=== PATIENT | female | born 1975 | race Caucasian/White ===

== ENCOUNTER 2017-07-03 19:15 | Inpatient (IN) ==
[2017-07-03 19:22] VITALS: BMI 25.2
[2017-07-03] MEDS ORDERED: SODIUM CHLORIDE 1,000 ML IV STA (19:44)
[2017-07-03] MEDS ORDERED: MORPHINE 2 MG/ML SYRINGE IVP STA (19:48)
[2017-07-03] MEDS ORDERED: NITROSTAT SL STA (19:48)
[2017-07-03] MEDS ORDERED: ZOFRAN 4 MG/2 ML IVP STA (19:49)
[2017-07-03] MEDS ORDERED: ASPIRIN CHEWABLE PO STA (19:50)
[2017-07-03 19:55] LABS: BASOPHILS % (AUTO) 0.5 % (0.0-3.0); EOSINOPHILS # (AUTO) 0.4 K/ul (0.0-0.7); HEMATOCRIT 38.2 % (37.0-47.0); HEMOGLOBIN 13.1 g/dl (12.0-16.0); IMMATURE GRANULOCYTE % (AUTO) 0.3 % (0.0-5.0); LYMPHOCYTES # (AUTO) 2.8 K/uL (0.60-3.4); LYMPHOCYTES % (AUTO) 36.6 (10.0-50.0); MEAN CORPUSCULAR HEMOGLOBIN 32.3 pg (27.0-31.0); MEAN CORPUSCULAR HGB CONC 34.3 (31.8-35.4); MEAN CORPUSCULAR VOLUME 94.1 fl (81.0-99.0); MONOCYTES # (AUTO) 0.5 K/uL (0.4-2.0); NEUTROPHILS # (AUTO) 3.8 K/ul (2.0-6.9); NEUTROPHILS % (AUTO) 50.6; PLATELET COUNT 291 10^3/uL (140-440); RED BLOOD COUNT 4.06 10^6/ul (4.20-5.40); WHITE BLOOD COUNT 7.55 K/ul (4.6-10.2)
[2017-07-03 20:23] LABS: SERUM PREGNANCY INTERNAL QC INTERNAL QC VALID
[2017-07-03 20:32] LABS: ALBUMIN 3.6 g/dL (3.4-5.0); ALBUMIN/GLOBULIN RATIO 1.09; ANION GAP 11.7; BILIRUBIN,TOTAL 0.55 mg/dL (0.00-1.20); BUN/CREATININE RATIO 19.51; CALCIUM 8.9 mg/dL (8.2-10.2); CREATININE 0.82 mg/dL (0.60-1.30); POTASSIUM 3.7 mmol/L (3.5-5.10); TOTAL PROTEIN 6.9 g/dL (6.4-8.2); TROPONIN I 0.014 ng/ml (0.0000-0.4000)
[2017-07-03 20:33] LABS: CREATINE KINASE MB 1.4 ng/ml (0.0-3.6)
--- NOTE | 2017-07-03 21:33 | CT ---
Exam: CT angiography of the chest History: Chest pain Technique: [address] of the chest utilizing CT angiography protocol per multiplanar and three-dimensio nal reformations were performed. FINDINGS: Technically adequate for evaluation of pulmonary arteries and aorta. There are no pulmonar y artery filling defects. The aorta is normal. Lung windows show no pulmonary parenchymal abnormali ties. Heart, great vessels and pericardium appear normal. No abnormalities of the chest wall soft t issues or bony thorax. Impression: 1. No evidence of pulmonary artery thrombus. No acute findings of the chest.
--- NOTE | 2017-07-03 21:41 | CT ---
EXAM: CT abdomen pelvis with contrast. HISTORY: Epigastric pain COMPARISON: None. TECHNIQUE: Serial axial images of the abdomen pelvis were performed after contrast was administered . These were obtained from the lung bases through the inferior pelvis. FINDINGS: Images of the lower thorax show no pulmonary infiltrate. No pleural fluid is seen. Abdomen. There is no intraperitoneal free air. The liver, spleen, pancreas, adrenal glands are unremarkable. There is no renal calculus. No obstruction of either kidney or ureter is seen. There are changes of previous cholecystectomy. No biliary ductal dilatation seen. There is no ascites. There is no smal l bowel obstruction or bowel wall thickening. There is no pericecal inflammation. Only a portion andrew endix is clearly defined and appears nondilated. There is dense stool seen in the colon most promine nt cecum and ascending colon. Aorta is normal caliber. No abdominal adenopathy. Pelvis. Uterus midline. No free fluid is seen in the pelvis. No adenopathy. No hernia is identifi ed.. Impression 1. No bowel obstruction. Large volume dense stool seen in the cecum and the ascending colon, possib le constipation. No obvious pericecal inflammation. Only a portion of the appendix is visualized on the study without contrast. If there is progressing pain followup study with oral contrast could be performed to further assess. 2. No renal calculus. No obstruction either kidney ureter. 3. Previous cholecystectomy. No biliary duct dilatation.
--- NOTE | 2017-07-03 21:47 | ED.PDOC ---
General ED Provider: Dr. BORA FRANCIS-ER Chief Complaint: Chest Pain Stated Complaint: my chest has been jhurting Time Seen by Physician: 19:20 Mode of Arrival: Walk-In Information Source: Patient Exam Limitations: No limitations Primary Care Provider: BABITA MINER Nursing and Triage Documentation Reviewed and Agree: Yes Cardiovascular Complaint Exam - Chest Pain Complaint/Exam Onset: Gradual Duration: several min Symptoms Are: Still present Initial Severity: Mild Current Severity: Mild Location: Reports: Diffuse Character: Reports: Dull, Aching, Pressure Aggravating: Reports: None Alleviating: Reports: Nitro Associated Signs and Symptoms: Denies: Diaphoresis, Nausea, Vomiting, Fever, Palpitations, Cough, Hemoptysis, Back pain, Abdominal pain, Dizziness, Short of air, Calf pain, Calf swelling Related Surgical History: Reports: None History of Healthcare-Acquired Pneumonia: Reports: No AMI/ACS Risk Factors: Reports: Hypertension, Smoking TAD Risk Factors: Reports: None Pulmonary Embolism Risk Factors: Reports: None Prior Care for this Complaint: No Recent Stress Test: No JVD Present: No Subcutaneous Emphysema Present: No Diminshed Breath Sounds: No Reproducible Chest Wall Pain: No Bilateral Pulses Present: Yes Unequal Pulses Noted: No If Risk Factors for AMI/ACS Consider: EKG, Cardiac Enzymes Differential Diagnoses: Acute ND, ACS, Pulmonary Embolism Quality Indicators For Acute ND or Cardiac Chest Pain: EKG in 10min. Quality Indicator For Non-Traumatic Chest Pain/Syncope: EKG Performed Review of Systems - Review Of Systems Constitutional: Reports: No symptoms Eyes: Reports: No symptoms Ears, Nose, Mouth, Throat: Reports: No symptoms Respiratory: Reports: No symptoms Cardiac: Reports: Chest pain GI: Reports: No symptoms : Reports: No symptoms Musculoskeletal: Reports: No symptoms Skin: Reports: No symptoms Neurological: Reports: No symptoms Endocrine: Reports: No symptoms Hematologic/Lymphatic: Reports: No symptoms All Other Systems: Reviewed and Negative Past Medical History - Past Medical History Previously Healthy: No Endocrine: Reports: Unknown Cardiovascular: Reports: Hypertension Respiratory: Reports: Unknown Hematological: Reports: Unknown Gastrointestinal: Reports: Unknown Genitourinary: Reports: Unknown Neuro/Psych: Reports: Unknown Musculoskeletal: Reports: Unknown Cancer: Reports: Unknown Last Menstrual Period: PRESENTLY - Surgical History General Surgical History: Reports: Unknown - Family History Family History: Reports: Unknown - Social History Smoking Status: Current every day smoker, Light tobacco smoker Hx Substance Use: No Alcohol Screening: Occasionally - Immunizations Tetanus Shot up to Date: Yes Physical Exam - Physical Exam Appearance: Well-appearing, No pain distress, Well-nourished Pain Distress: Mild Eyes: JUAN FRANCISCO, EOMI, Conjunctiva clear ENT: Ears normal, Nose normal, Oropharynx normal Neck: Supple Respiratory: Airway patent, Breath sounds clear, Breath sounds equal, Respirations nonlabored Cardiovascular: RRR, Pulses normal, No rub, No murmur GI/: Soft, Nontender, No masses, Bowel sounds normal, No Organomegaly Musculoskeletal: Normal strength, ROM intact, No edema, No calf tenderness Skin: Warm, Dry, Normal color Neurological: Sensation intact Psychiatric: Affect appropriate, Mood appropriate Interpretation - Radiology Interpretation Radiology Interpretation By: Radiologist Radiology Results: Negative Exam Interpreted: CT Scan Re-Evaluation - Re-Evaluation Time of Re-Evaluation: 21:47 Status: Improved (pain free) Vital Signs Stable: Yes Pain Level: 0 Appearance: NAD Lungs: Clear Skin: Warm and Dry Neuro: Alert and Oriented X3 CV: RRR Critical Care Note - Critical Care Note Total Time (mins): 0 Course - Course Hematology/Chemistry: 07/03/17 19:50 07/03/17 19:50 Orders, Labs, Meds: Lab Review 07/03/17 07/03/17 07/03/17 19:50 19:50 19:50 WBC 7.55 RBC 4.06 L Hgb 13.1 Hct 38.2 MCV 94.1 MCH 32.3 H MCHC 34.3 RDW Coeff of Nida 12.8 Plt Count 291 Immature Gran % (Auto) 0.3 Neut % (Auto) 50.6 Lymph % (Auto) 36.6 [place] % (Auto) 7.0 Eos % (Auto) 5.0 Baso % (Auto) 0.5 Immature Gran # (Auto) 0.0 Neut # 3.8 Lymph # 2.8 [place] # 0.5 Eos # 0.4 Baso # 0.0 Sodium 137 Potassium 3.7 Chloride 103 Carbon Dioxide 26 Anion Gap 11.7 BUN 16 Creatinine 0.82 Estimated GFR (MDRD) 77.00 BUN/Creatinine Ratio 19.51 Glucose 87 Calcium 8.9 Total Bilirubin 0.55 AST 20 ALT 15 Alkaline Phosphatase 56 Total Creatine Kinase 163 CK-MB (CK-2) 1.4 CK-MB (CK-2) % 0.48701 Troponin I 0.0140 Total Protein 6.9 Albumin 3.6 Globulin 3.3 Albumin/Globulin Ratio 1.09 Amylase 92 Lipase 67 Serum , Qual Negative Orders Category Date Time Status EKG-(ED ONLY) Stat CARDIO 07/03/17 19:43 Completed NPO REMINDER: IMAGING ONCE CARE 07/03/17 19:45 Completed NPO REMINDER: IMAGING ONCE CARE 07/03/17 19:46 Completed IV [ED IV/MEDIPORT/POWERPORT] .ONCE EMERGENCY 07/03/17 19:44 Active AMYLASE Stat LAB 07/03/17 19:50 Completed CBC W/ AUTO DIFF Stat LAB 07/03/17 19:50 Completed COMPREHENSIVE METABOLIC PANEL Stat LAB 07/03/17 19:50 Completed CREATINE KINASE Stat LAB 07/03/17 19:50 Completed LIPASE Stat LAB 07/03/17 19:50 Completed SERUM Stat LAB 07/03/17 19:50 Completed TROPONIN I Stat LAB 07/03/17 19:50 Completed 0.9 % Sodium Chloride [Saline Flush] MEDS 07/03/17 19:44 Ordered 1 syr IVF PRN PRN Aspirin [Aspirin Chewable] MEDS 07/03/17 19:50 Discontinued 324 mg PO ONCE STA Morphine Sulfate [Morphine 2 mg/ml Syringe] MEDS 07/03/17 19:48 Discontinued 2 mg IVP ONCE STA Nitroglycerin [Nitrostat] MEDS 07/03/17 19:48 Discontinued 0.4 mg SL ONCE STA Ondansetron HCl/Pf [Zofran 4 mg/2 ml] MEDS 07/03/17 19:49 Discontinued 4 mg IVP ONCE STA Sodium Chloride 0.9% [Sodium Chloride] 1,000 ml MEDS 07/03/17 19:44 Active IV 100 mls/hr CT ABDOMEN/PELVIS W CONTRAST Stat RADS 07/03/17 19:[address] CHEST PE PROTOCOL Stat RADS 07/03/17 19:44 Completed Medications Generic Name Dose Route Start Last Admin Trade Name Freq PRN Reason Stop Dose Admin Sodium Chloride 1,000 mls @ 100 mls/hr 07/03/17 19:44 07/03/17 19:57 Sodium Chloride IV 07/04/17 05:43 100 mls/hr .Q10H STA Administration Sodium Chloride 1 syr 07/03/17 19:44 07/03/17 20:05 Saline Flush IVF 1 syr PRN PRN Administration To flush IV Discontinued Medications Generic Name Dose Route Start Last Admin Trade Name Skinny PRN Reason Stop Dose Admin Aspirin 324 mg 07/03/17 19:50 07/03/17 19:55 Aspirin Chewable PO 07/03/17 19:51 324 mg ONCE STA Administration Morphine Sulfate 2 mg 07/03/17 19:48 07/03/17 20:00 Morphine 2 Mg/Ml Syringe IVP 07/03/17 19:49 2 mg ONCE STA Administration Nitroglycerin 0.4 mg 07/03/17 19:48 07/03/17 19:57 Nitrostat SL 07/03/17 19:49 0.4 mg ONCE STA Administration Ondansetron HCl 4 mg 07/03/17 19:49 07/03/17 20:00 Zofran 4 Mg/2 Ml IVP 07/03/17 19:50 4 mg ONCE STA Administration Vital Signs: Temp Pulse Resp BP Pulse Ox 07/03/17 19:16 97.8 F 84 18 175/110 H 100 ALEXANDER Risk Score ALEXANDER Risk Score: Risk Score Odds of by 30D 0 0.1 (0.1-0.2) 1 0.3 (0.2-0.3) 2 0.4 (0.3-0.5) 3 0.7 (0.6-0.9) 4 1.2 (1.0-1.5) 5 2.2 (1.9-2.6) 6 3.0 (2.5-3.6) 7 4.8 (3.8-6.1) Departure - Departure Time of Disposition: 21:47 Disposition: HOME SELF-CARE Discharge Problem: Chest pain Instructions: Chest Pain (ED) Condition: Good Pt referred to PMD for follow-up: Yes Allergies/Adverse Reactions: Allergies No Known Allergies Allergy (Verified 07/03/17 19:22) Home Medications: Ambulatory Orders Amlodipine Besylate [Norvasc] 10 mg PO DAILY 11/02/14 Multivitamin [Multi-Vitamin Daily] 1 tab PO DAILY 11/02/14 Labetalol HCl 200 mg PO DAILY 07/03/17 Vortioxetine Hydrobromide [Brintellix] 10 mg PO DAILY 07/03/17 Transfer Form Completed: No Disposition Discussed With: Patient, Family
[2017-07-03] MEDS ORDERED: NITROSTAT SL PRN (21:50)
[2017-07-03] MEDS ORDERED: MORPHINE 2 MG/ML SYRINGE IVP PRN (21:51)
[2017-07-03] MEDS ORDERED: ZOFRAN 4 MG/2 ML IVP PRN (21:51)
[2017-07-03] MEDS ORDERED: TRANDATE PO STA (22:41)
[2017-07-03] MEDS ORDERED: NORVASC PO STA (22:41)
[2017-07-03] MEDS ORDERED: LOPRESSOR PO ONE (22:55)
[2017-07-04 06:06] LABS: CREATINE KINASE 121 U/L
[2017-07-04 06:07] LABS: CREATINE KINASE MB 1.2 ng/ml (0.0-3.6)
[2017-07-04] MEDS ORDERED: NON-FORMULARY MEDICATION (Amlodipine Besylate [Norvasc] 10 MG) PO SCH ×44 (09:00→21:00)
[2017-07-04] MEDS ORDERED: LABETALOL HCL 200 MG PO SCH ×2 (09:00→21:00)
[2017-07-04] MEDS ORDERED: CITRATE OF MAGNESIA PO STA (12:43)
[2017-07-04 13:34] LABS: CHOL/HDL RATIO 2.7 (4.5-5.5)
--- NOTE | 2017-07-04 13:55 | STRESSECHO ---
Date of Test: 07/04/17 Reason for Exam: CHEST PAIN Ordering Physician: JESSICA FALK MD PCP: BABITA MINER MD Current Medications: LABETALOL, NORVASC, BRINTELLIX, MULTI VITAMIN Resting EKG: SINUS RHYTHM, NO ACUTE CHANGES Target Heart Rate: 152 STAGE MPH/GRADE HEART RATE BPM BLOOD PRESSURE mmhg RHYTHM S-T SEGMENT +/- UP DOWN SYMPTOMS,COMMENTS At Rest 66 150/92 SR X NONE 1 1.7/10% 120 172/95 SR X NONE 2 2.5/12% 146 180/100 SR X NONE 3 3.4/14% 4 4.2/16% 5 5.0/18% Immediately after 150 SR X FATIGUE Durations of Exercise: 6:13 Maximum Heart Rate Reached: 150 Reason for Termination: FATIGUE 3 Minutes Post Exercise: HeartRate: 92, Blood Pressure: 165/92 MMHG, SR, +/- INTERPRETATION: OXYGEN SATURATION 99% WITH EXERCISE ON ROOM AIR 1. TEST NEGATIVE FOR ISCHEMIC ST-T WAVE CHANGES 2. NO CHEST PAIN OR CHEST DISCOMFORT 3. NO ARRHYTHMIAS 4. BLOOD PRESSURE RESPONSE: HYPERTENSION AT REST AND WITH EXERCISE NORMAL LEFT VENTRICULAR CONTRACTILITY RESTING AND POST EXERCISE COPY TO BABITA MINER MD MTDD
--- NOTE | 2017-07-04 14:02 | ECHOSTRESS ---
Date of Exam: 07/04/17 Ordering Physician: JESSICA FALK MD PCP: BABITA MINER MD Reason for Echo: CHEST PAIN, STRESS TEST-NO ISCHEMIA M-Mode Normal Adult Results LV Dimensions Normal Adult Results AoV Opening excursions >1.6 LVEDD-base- 3.5-5.8 Ao root dimensions 2.0-3.7 LVESD-base- 3.1-4.6 L. Atrium dimensions 1.9-3.8 Post. Wall thickness 0.8-1.1 IV septum (thickness) 0.7-1.2 Post. Wall excursion 0.72-1.3 Septal motion Systolic motion R. Ventricular cavity 1.5-2.0 LVEF 60% Paradoxical septal wall motion 2-D: NORMAL LEFT VENTRICULAR CONTRACTILITY RESTING AND POST EXERCISE M-MODE: MV: AV: TV: PV: CHAMBER SIZE: WALL MOTION: NORMAL LEFT VENTRICULAR CONTRACTILITY RESTING AND POST EXERCISE PERICARDIUM: INTERPRETATION: 1. NORMAL LEFT VENTRICULAR CONTRACTILITY RESTING AND POST EXERCISE COPY TO [facility] MIN[facility]
[2017-07-04] MEDS ORDERED: MULTIVITAMIN PO ONE (19:39)
[2017-07-04] MEDS ORDERED: NON-FORMULARY MEDICATION (Vortioxetine Hydrobromide [Trintellix] 10 MG) PO SCH (21:00)
[2017-07-04] MEDS ORDERED: TRANDATE PO SCH (21:00)
[2017-07-04] MEDS ORDERED: NORVASC PO SCH (21:00)
[2017-07-04] MEDS ORDERED: MULTIVITAMIN TABLET PO SCH (21:00)
[2017-07-05 06:25] VITALS: BP 119/72; TEMP 98.3
--- NOTE | 2017-07-11 14:35 | SSS ---
DATE OF SERVICE: 07/04/17 REASON FOR ADMISSION: Epigastric pain, chest pain HISTORY OF PRESENT ILLNESS: 41 year old female came to the emergency room with the epigastric pain just started a couple of hours after having spicy food. The pain was continued for 3- 4 days so came to the emergency room. Radiating the left side of the neck and left side of the jaw and backside. No nausea, vomiting or diarrhea. She was seen and evaluated by Dr. White. CT scan of the chest was negative. Initial blood pressure was 175/110, Trandate was given in the ER which did control her blood pressure. She was admitted to observation to rule out acute coronary syndrome. REVIEW OF SYSTEMS: CONSTITUTIONAL: No night sweats. No fatigue, malaise, lethargy. No fever or chills. HEENT: Eyes: No visual changes. No eye pain. No eye discharge. ENT: No runny nose. No epistaxis. No sinus pain. No sore throat. No odynophagia. No ear pain. No congestion. Epigastric pain radiating to the left side. RESPIRATORY: No cough, no congestion. No hemoptysis. No shortness of breath. CARDIOVASCULAR: No angina symptoms. No CHF symptoms. No atypical chest pain for CAD. No palpitations. No orthopnea. GASTROINTESTINAL: No abdominal pain. No nausea or vomiting. Constipation. No hematemesis. No hematochezia. GENITOURINARY: No dysuria. No hematuria. No obstructive symptoms. No discharge. No pain. No significant abnormal bleeding. MUSCULOSKELETAL: No musculoskeletal pain. No joint swelling. NEUROLOGICAL: Awake, alert, oriented to time, place and person. No headache. No neck pain. No syncope. No seizures. No dizziness. PSYCHIATRIC: Not anxious. No depression. No suicidal thoughts. No homicidal thoughts. SKIN: No rash. No lesions. No wounds. ENDOCRINE: No unexplained weight loss. No weight gain. HEMATOLOGIC/LYMPHATIC: No anemia. No purpura. No petechiae. No prolonged or excessive bleeding. No palpable lymph nodes. PAST HISTORY: Hypertension GERD Depression Anxiety Substance use Nicotine use Cholecystectomy Inguinal hernia repair PERSONAL/FAMILY HISTORY/SOCIAL HISTORY: The patient does smoke, alcohol sometimes and substance use marijuana sometimes. Family history is significant for the heart problems, skin cancer. PHYSICAL EXAMINATION: VITAL SIGNS: Blood pressure 133/83, respiratory rate 16, heart rate 72, temperature 98.6 with saturation 98 on 2 liters. HEENT: Head normocephalic, atraumatic. Eyes: Extraocular muscles are intact. Pupils are equal, round and reactive to light and accommodation. Ears: No lesions. Nose appeared normal. Throat: No exudate or erythema. NECK: Supple. No JVD, no carotid bruit. No lymphadenopathy or thyromegaly. LUNGS: Clear to auscultation. Percussion note normal. Chest symmetrical. HEART: S1, S2, no S3. No murmurs. No cyanosis or clubbing. No ascites. Pulses: Dorsalis pedis and posterior tibial pulses +1 to +2 both sides. ABDOMEN: Soft. Nontender. Bowel sounds active. No CVA tenderness. No mass felt. EXTREMITIES: No edema. Full range of motion of all extremities, equal. NEUROLOGIC: No focal deficit. Cranial nerves II through XII are grossly intact. No headache, no double vision or headache. SKIN: Not dry. Intact. Turgor - normal. LYMPHATIC: No palpable lymph nodes/no lymphedema. MUSCULOSKELETAL: Normal joints with no swelling. Muscle tone is normal. ALLERGIES: No known drug allergies. MEDICATIONS: Multivitamin Norvasc Brintellix Labetalol 100mg at bedtime LABS/EKG'S/X-RAY/ECHO/ABG: Sodium 137, potassium 3.7, chloride 103, bicarb 26, BUN 16, creatinine 0.82, glucose 87. TSH 1.089, Amylase and Lipase is normal. Hgb 13.1, hct 38.2, plt count 291. PROGRESS NOTES: See EMR. BRIEF HOSPITAL COURSE: The patient was admitted to the hospital stress test and echocardiogram was done which were negative. Magnesium Citrate was given for the constipation. As the patient was feeling better the patient was being discharged. DIAGNOSES: 1. Chest pain, noncardiac 2. Constipation 3. Depression 4. Anxiety 5. History of 6. Cholecystectomy 7. Inguinal Hernia repair RECOMMENDATIONS/PLAN: 1. Discharge the patient home 2. Lifestyle modification 3. Increase fiber diet 4. Followup with the PMD within 5-7 days. TIME SPENT: More than 65 minutes. [facility]
--- NOTE | 2017-07-11 14:44 | PN ---
DATE OF SERVICE: 07/04/17 SUBJECTIVE: The patient was admitted with elevated blood pressure and chest pain for which the patient is admitted and we are doing the stress test and echocardiogram. Blood pressure became normal today morning 198/70. No epigastric pain. REVIEW OF SYSTEMS: CONSTITUTIONAL: No fever, no chills. HEENT: Normal. ENDOCRINE: No weight gain, no weight loss. CVS: No angina symptoms. No CHF symptoms. No palpitations. No atypical chest pain for CAD. No shortness of breath. No PND, no orthopnea. RESPIRATORY: No cough, no hemoptysis. GI: No nausea, no vomiting. No abdominal pain. : No hematuria. No polyuria. MUSCULOSKELETAL:. No joint swelling. PSYCHIATRIC: Not anxious. No depression. No suicidal thoughts. No homicidal thoughts. SKIN: Intact. No rash. PHYSICAL EXAMINATION: V/S: Blood pressure 108/70, respiratory rate 18, heart rate 74, temperature 98.0 with saturation 95%. HEENT: Normocephalic, atraumatic. Mucosa dry. NECK: Supple. No JVD, no carotid bruit. No lymphadenopathy. LUNGS: Clear to auscultation. No rales or rhonchi. HEART: S1, S2 normal. No S3. No murmur, gallop or regurgitation. ABDOMEN: Soft, epigastric discomfort present. Bowel sounds active. No rigidity. No rebound or guarding. No CVA tenderness. EXTREMITIES: No clubbing, cyanosis or pedal edema. MUSCULOSKELETAL: No joint swelling. NEUROLOGIC: Awake, alert, oriented times three. No focal deficit. LYMPHATIC: No lymph nodes palpable. SKIN: Intact. LABS: Two sets of the cardiac enzymes are negative. Lipid profile is normal, TSH is negative. Serum is negative. CT scan did show some constipation, will go ahead and give laxative. ASSESSMENT: 1. Chest pain, rule out ACS 2. Status post elevated blood pressure now better 3. Constipation 4. Depression 5. Anxiety PLAN: 1. Followup with the stress test and echocardiogram report 2. Lifestyle modification 3. Diet control been discussed 4. Increase fiber diet. TIME SPENT: More than 35 minutes MTDD
--- NOTE | 2017-07-11 15:01 | PN ---
DATE OF SERVICE: 07/03/17 CHIEF COMPLAINT: Chest pain or epigastric pain SUBJECTIVE: 41 year old female came to the emergency room with the epigastric room. Started in the evening about 30 minutes ago radiating to the left arm and left side of the jaw going straight back to the backside. Not worsened with the exertion. Nothing is making it better. Pain is intermittent and dull pain. Started after eating fried food before the weekend. The patient is seen and examined by Dr. White in the emergency room. The patient has history of hypertension, kidney stone and depression. Labs were normal. CT of the chest and CT abdomen and pelvis done. CT abdomen showed a lot of constipation. At that time in review of CT scan of the chest no acute finding at that time the patient is admitted to the hospital with chest pain. Rule out acute coronary syndrome for observation and get a stress test and echocardiogram in the morning. REVIEW OF SYSTEMS: CONSTITUTIONAL: No fever, no chills. HEENT: Normal. ENDOCRINE: No weight gain, no weight loss. CVS: No angina symptoms. No CHF symptoms. No palpitations. No atypical chest pain for CAD. Some shortness of breath. No PND, no orthopnea. RESPIRATORY: No cough, no hemoptysis. GI: No nausea, no vomiting. No abdominal pain. : No hematuria. No polyuria. MUSCULOSKELETAL:. No joint swelling. PSYCHIATRIC: Not anxious. No depression. No suicidal thoughts. No homicidal thoughts. SKIN: Intact. No rash. PHYSICAL EXAMINATION: V/S: blood pressure 136/92, respiratory rate 16,. heart rate 77, temperature 97.9 with saturation 98 on the room air. HEENT: Normocephalic, atraumatic. Mucosa dry. NECK: Supple. No JVD, no carotid bruit. No lymphadenopathy. LUNGS: Clear to auscultation. No rales or rhonchi. HEART: S1, S2 normal. No S3. No murmur, gallop or regurgitation. ABDOMEN: Soft, nontender. Bowel sounds active. No rigidity. No rebound or guarding. No CVA tenderness. EXTREMITIES: No clubbing, cyanosis or pedal edema. MUSCULOSKELETAL: No joint swelling. NEUROLOGIC: Awake, alert, oriented times three. No focal deficit. LYMPHATIC: No lymph nodes palpable. SKIN: Intact. LABS: Sodium 137, potassium 3.7, chloride 103, bicarb 26, bicarb 16, BUN 0.82, glucose is 87. First set of the cardiac enzymes are negative. WBC 7.55, hgb 13.1 , hct 38.2, plt count 291. EKG normal sinus rhythm. First set of cardiac enzymes are negative. ASSESSMENT: 1. Chest pain rule out ACS 2. History of hypertension 3. Depression 4. Anxiety 5. Substance use PLAN: 1. Admit patient to observation 2. TSH and Lipid profile 3. Stress echocardiogram in the morning 4. Laxative of choice 5. Daily I&O's TIME SPENT: More than 45 minutes MTDD
== END 2017-07-05 09:11 | disposition home or self-care (01) | DRG 313 ==
LOC: ED 19:15 → MEDSURG A 21:48
PROVIDERS: ADMIT Emergency Medicine; ATTEND Emergency Medicine
DX: R07.89 Other chest pain (principal); K59.00 Constipation, unspecified; R10.13 Epigastric pain; R68.84 Jaw pain; R06.02 Shortness of breath; I10 Essential (primary) hypertension; F41.8 Other specified anxiety disorders; F19.90 Other psychoactive substance use, unspecified, uncomplicated; Z90.49 Acquired absence of other specified parts of digestive tract; Z98.890 Other specified postprocedural states; Z87.442 Personal history of urinary calculi; Z79.899 Other long term (current) drug therapy
CPT/HCPCS: 36415; 80053; 80061; 82150; 82550; 82553; 83690; 84443; 84484; 84703; 85025; 93005; 93010; 96361; 96374; 96375; 99284

== ENCOUNTER 2018-12-08 09:45 | Emergency (ER) ==
[2018-12-08 09:52] VITALS: BP 141/95; TEMP 99.4; BMI 28.1
[2018-12-08 10:36] LABS: URINE PREGNANCY TEST NEGATIVE (NEGATIVE)
--- NOTE | 2018-12-08 11:06 | CT ---
EXAM: CT Abdomen without contrast. CT Pelvis without contrast. HISTORY: Right upper quadrant pain. COMPARISON: 07/03/2017. TECHNIQUE: Multiple axial images of the abdomen and pelvis were obtained without intravenous contras t. Images were reformatted in the sagittal and coronal plane. FINDINGS: Please note that evaluation of the abdominal and pelvic structures is limited due to lack of intravenous contrast. No acute abnormality identified in the lung bases. Minimal subsegmental atelectasis noted in the lef t lower lobe. No acute osseous abnormality detected. Degenerative disc disease seen in the lower thoracic and lumb ar spine. Gallbladder is absent. The liver, pancreas, spleen, and adrenal glands demonstrate normal contour. No calcified renal stones, hydronephrosis or perinephric inflammation identified. The bowel is normal in course and caliber without evidence for obstruction or inflammatory process. Mobile cecum noted, located in the mid abdomen. The appendix is not seen. No inflammation surroundi ng the cecum was identified. Uterus demonstrates normal contour. Urinary bladder is collapsed. No free fluid or free air identified. IMPRESSION: 1. No acute abnormality within the abdomen or pelvis. 2. Nonvisualized appendix.
[2018-12-08] MEDS ORDERED: SODIUM CHLORIDE 1,000 ML IV STA (12:03)
--- NOTE | 2018-12-08 12:50 | CT ---
EXAM: CT Abdomen with contrast. CT Pelvis with contrast. HISTORY: Right lower quadrant pain. Nonvisualized appendix on noncontrast CT. COMPARISON: Noncontrast CT earlier the same day. Contrast enhanced CT 07/03/2017. TECHNIQUE: Multiple axial images of the abdomen and pelvis were obtained following intravenous admin istration of 75 mL of Omnipaque 350, low osmolar. Images were reformatted in the sagittal and levin l plane. FINDINGS: Minimal subsegmental atelectasis noted in the left lower lobe. No acute osseous abnormality identified. Gallbladder is absent. The liver, pancreas, spleen, adrenal glands, and kidneys without acute abnorm ality. There is no evidence for bowel obstruction or acute inflammation. The cecum sits in the central abdo men. The appendix is likely visualized on axial image 83 and sagittal and 61 in which case it is nor mal. Uterus demonstrates normal contour. Urinary bladder is unremarkable. No free fluid, free air or lym phadenopathy identified. IMPRESSION: No acute abnormality within the abdomen or pelvis. Probable normal appendix.
--- NOTE | 2018-12-08 13:08 | ED.PDOC ---
General ED Provider: Dr. TAYLA MCKEON Chief Complaint: Abdominal Pain Stated Complaint: RLQ abdominal pain . Time Seen by Physician: 10:00 ( FIRST WEEK OF NOVEMBER) Mode of Arrival: Walk-In Information Source: Patient Exam Limitations: No limitations Primary Care Provider: BABITA MINER Referred to ED by: Other (DENIED TRAUMA ) Nursing and Triage Documentation Reviewed and Agree: Yes Does patient meet sepsis criteria?: No System Inflammatory Response Syndrome: Not Applicable Sepsis Protocol: For patient's 13 years and over: Temp is 96.8 and below OR 101 and greater Pulse >90 BPM Resp >20/minute Acutely Altered Mental Status Are patient's symptoms suggestive of a new infection, such as: -Pneumonia -Skin, Soft Tissue -Endocarditis -UTI -Bone, Joint Infection -Implantable Device -Acute Abdominal Infection -Wound Infection -Meningitis -Blood Stream Catheter Infection -Unknown GI Complaint Exam - Abdominal Pain Complaint/Exam Onset: Gradual Duration: 1 DAY Symptoms Are: Still present Timing: Intermittent Initial Severity: Mild Current Severity: Mild Location of Pain: RLQ Radiates To: Reports: RLQ. Denies: Chest, Back, Flank Character: Reports: Aching Aggravating: Reports: None Alleviating: Reports: None Associated Signs and Symptoms: Denies: Diaphoresis, Fever, Cough, Chest pain, Dizziness, Back pain, Constipation, Blood in stool, Dysuria, Urinary frequency, Decreased urine output, Decreased appetite, Vaginal bleeding, Vaginal discharge , Nausea, Vomiting, Diarrhea, Sore throat, Decreased activity : 4 Para: 4 Hx Total # of Abortions (Spontaneous & Elective): 0 AAA Risk Factors: Reports: None Cardiac Risk Factors: Reports: None Ectopic Risk Factors: Reports: None Ovarian Torsion Risk Factors: Reports: None Surgical Obstruction Risk Factors: Reports: None Related Surgical History: Reports: None Patient Rh Status: Unknown Abdominal Findings: Present: None Differential Diagnoses: Appendicitis, Bowel Obstruction, Constipation, Diverticulitis, Hepatitis, Pancreatitis, Irritable Bowel Syndrome, Renal Colic, Ovarian Cyst Review of Systems - Review Of Systems Constitutional: Reports: No symptoms Eyes: Reports: No symptoms Ears, Nose, Mouth, Throat: Reports: No symptoms Respiratory: Reports: No symptoms Cardiac: Reports: No symptoms GI: Reports: Abdominal pain (RLQ). Denies: Abdomen distended, Blood streaked bowels, Constipated, Diarrhea, Difficulty swallowing, Nausea, Poor appetite, Poor fluid intake, Rectal bleeding, Vomiting : Reports: No symptoms Musculoskeletal: Reports: No symptoms Skin: Reports: No symptoms Neurological: Reports: No symptoms Endocrine: Reports: No symptoms Hematologic/Lymphatic: Reports: No symptoms All Other Systems: Reviewed and Negative Past Medical History - Past Medical History Previously Healthy: No Endocrine: Reports: Unknown Cardiovascular: Reports: Hypertension Respiratory: Reports: Unknown Hematological: Reports: Unknown Gastrointestinal: Reports: Unknown Genitourinary: Reports: Unknown Neuro/Psych: Reports: Unknown Musculoskeletal: Reports: Unknown Cancer: Reports: Unknown Last Menstrual Period: 11/06 - Surgical History General Surgical History: Reports: Unknown - Family History Family History: Reports: Unknown - Social History Smoking Status: Current some day smoker Hx Substance Use: No Alcohol Screening: None - Immunizations Tetanus Shot up to Date: Yes Physical Exam - Physical Exam Appearance: Well-appearing, No pain distress, Well-nourished Eyes: JUAN FRANCISCO, EOMI, Conjunctiva clear ENT: Ears normal, Nose normal, Oropharynx normal Respiratory: Airway patent, Breath sounds clear, Breath sounds equal, Respirations nonlabored Cardiovascular: RRR, Pulses normal, No rub, No murmur GI/: Soft, Nontender, No masses, Bowel sounds normal, No Organomegaly Musculoskeletal: Normal strength, ROM intact, No edema, No calf tenderness Skin: Warm, Dry, Normal color Neurological: Sensation intact, Motor intact, Reflexes intact, Cranial nerves intact, Alert, Oriented Psychiatric: Affect appropriate, Mood appropriate Interpretation - Radiology Interpretation Radiology Interpretation By: Radiologist Radiology Results: No acute changes Exam Interpreted: CT Scan Re-Evaluation - Re-Evaluation Time of Re-Evaluation: 13:11 (U/S ISSUE DISCUSSED CHARLY PRESENT) Status: Improved Vital Signs Stable: Yes Pain Level: /10 Appearance: NAD Lungs: Clear Skin: Warm and Dry Neuro: Alert and Oriented X3 CV: RRR Additional Comments: SEEN WITH CHARLY ULTRA SOUND DISCUSSED PT AWARE THAT I CAN NOT ASSES OVARY Critical Care Note - Critical Care Note Total Time (mins): 0 Course - Course Hematology/Chemistry: 12/08/18 10:10 12/08/18 10:10 Orders, Labs, Meds: Lab Review 12/08/18 12/08/18 12/08/18 10:10 10:10 10:10 WBC 7.66 RBC 4.48 Hgb 14.6 Hct 43.5 MCV 97.1 MCH 32.6 H MCHC 33.6 RDW Coeff of Nida 12.7 Plt Count 303 Immature Gran % (Auto) 0.3 Neut % (Auto) 53.0 Lymph % (Auto) 33.9 [place] % (Auto) 8.6 Eos % (Auto) 3.7 Baso % (Auto) 0.5 Immature Gran # (Auto) 0.0 Neut # (Auto) 4.1 Lymph # (Auto) 2.6 [place] # (Auto) 0.7 Eos # (Auto) 0.3 Baso # (Auto) 0.0 Sodium 139.5 Potassium 3.93 Chloride 106.4 Carbon Dioxide 25.2 Anion Gap 11.83 BUN 19.3 H Creatinine 0.84 Estimated GFR (MDRD) 74.00 BUN/Creatinine Ratio 22.97 Glucose 88.7 Calcium 8.77 Total Bilirubin 0.58 AST 28.9 ALT 17.4 Alkaline Phosphatase 50.2 Total Protein 7.45 Albumin 4.70 Globulin 2.75 Albumin/Globulin Ratio 1.70 Amylase 152.0 H Lipase 331.8 H Urine Color Yellow Urine Clarity Clear Urine pH 8.5 Ur Specific [place] 1.015 Urine Protein Trace Urine Glucose (UA) Negative Urine Ketones Trace Urine Blood Negative Urine Nitrite Negative Urine Bilirubin Negative Urine Urobilinogen 0.2 Ur Leukocyte Esterase Negative Urine Microscopic RBC 2-5 Urine Microscopic WBC 0-2 Ur Squamous Epith Cells 5-10 Urine Bacteria Trace Urine Test 12/08/18 10:10 WBC RBC Hgb Hct MCV MCH MCHC RDW Coeff of Nida Plt Count Immature Gran % (Auto) Neut % (Auto) Lymph % (Auto) [place] % (Auto) Eos % (Auto) Baso % (Auto) Immature Gran # (Auto) Neut # (Auto) Lymph # (Auto) [place] # (Auto) Eos # (Auto) Baso # (Auto) Sodium Potassium Chloride Carbon Dioxide Anion Gap BUN Creatinine Estimated GFR (MDRD) BUN/Creatinine Ratio Glucose Calcium Total Bilirubin AST ALT Alkaline Phosphatase Total Protein Albumin Globulin Albumin/Globulin Ratio Amylase Lipase Urine Color Urine Clarity Urine pH Ur Specific [place] Urine Protein Urine Glucose (UA) Urine Ketones Urine Blood Urine Nitrite Urine Bilirubin Urine Urobilinogen Ur Leukocyte Esterase Urine Microscopic RBC Urine Microscopic WBC Ur Squamous Epith Cells Urine Bacteria Urine Test Negative Orders Category Date Time Status NPO REMINDER: IMAGING ONCE CARE 12/08/18 12:03 Completed AMYLASE Stat LAB 12/08/18 10:10 Completed CBC W/ AUTO DIFF Stat LAB 12/08/18 10:10 Completed COMPREHENSIVE METABOLIC PANEL Stat LAB 12/08/18 10:10 Completed LIPASE Stat LAB 12/08/18 10:10 Completed URINALYSIS C & S IF INDICATED Stat LAB 12/08/18 10:10 Completed URINE Stat LAB 12/08/18 10:10 Completed Sodium Chloride 0.9% [Sodium Chloride] 1,000 ml MEDS 12/08/18 12:03 Active IV 125 mls/hr CT ABDOMEN/PELVIS W CONTRAST Stat RADS 12/08/18 12:[address] ABDOMEN/PELVIS WO CONTRAST Stat RADS 12/08/18 10:24 Completed Medications Generic Name Dose Route Start Last Admin Trade Name Freq PRN Reason Stop Dose Admin Sodium Chloride 1,000 mls @ 125 mls/hr 12/08/18 12:03 12/08/18 12:25 Sodium Chloride IV 12/08/18 20:02 125 mls/hr .Q8H STA Administration Vital Signs: Temp Pulse Resp BP Pulse Ox 12/08/18 09:47 99.4 F 75 16 141/95 H 99 Departure - Departure Time of Disposition: 13:30 Disposition: HOME SELF-CARE Discharge Problem: Abdominal pain Instructions: Abdominal Pain (ED) Condition: Good Pt referred to PMD for follow-up: Yes IPMP verified?: No Additional Instructions: Please call your Family Physician as soon as possible to schedule a follow-up appointment. YOU BLOOD WORK AND C.T. SCANS ARE NORMAL. I WOULD HAVE PREFERD TO HAVE HAND A ULTRA SOUND OF YOUR OVARY ON THE RIGHT SIDE. BUT, I HAD DISCUSSED WITH YOU, THIS SERVICE DURING THE WEEKEND IS NOT AVAILABLE. PLEASE RETURN IF THE PAIN IS WORSE OR IF YOUR SICKER. ALSO HAVE YOUR M.D. EXAMINE THE COPY OF ALL YOUR BLOOD WORK AND ASSOCIATED CT REPORTS. Allergies/Adverse Reactions: Allergies Sulfa (Sulfonamide Antibiotics) Adverse Reaction (Verified 12/08/18 09:58) Home Medications: Ambulatory Orders Amlodipine Besylate [Norvasc] 10 mg PO BEDTIME 11/02/14 Multivitamin [Multi-Vitamin Daily] 1 tab PO BEDTIME 11/02/14 Labetalol HCl 200 mg PO BEDTIME 07/03/17 Vortioxetine Hydrobromide [Trintellix] 10 mg PO BEDTIME 07/03/17 Polyethylene Glycol 3350 [Miralax] 17 gm PO DAILY #1 powd.pack 07/05/17 Disposition Discussed With: Patient, Family
== END 2018-12-08 13:30 | disposition home or self-care (01) ==
LOC: ED 09:45
DX: R10.31 Right lower quadrant pain (principal); I10 Essential (primary) hypertension; F17.210 Nicotine dependence, cigarettes, uncomplicated
CPT/HCPCS: 36415; 80053; 81001; 81025; 82150; 83690; 85025; 96360; 99283

== ENCOUNTER 2022-02-27 16:18 | Observation (INO) ==
[2022-02-27] MEDS ORDERED: ASPIRIN CHEWABLE PO STA (16:42)
--- NOTE | 2022-02-27 16:43 | ED.PDOC ---
General ED Provider: Dr. ORION LUBIN Chief Complaint: Chest Pain Stated Complaint: past 2-3 days intermittnent last 2-3 min no other sx / Prior ST neg [id number] - dx anxiety , gerd , hypertension. Doesnt have those symptoms today other than elevated bp Time Seen by Provider: 02/27/22 16:42 Mode of Arrival: Walk-In Information Source: Patient Exam Limitations: No limitations Primary Care Provider: BABITA MINER Nursing and Triage Documentation Reviewed and Agree: Yes Does patient meet sepsis criteria?: No System Inflammatory Response Syndrome: Not Applicable Sepsis Protocol: For patient's 13 years and over: Temp is 96.8 and below OR 101 and greater Pulse >90 BPM Resp >20/minute Acutely Altered Mental Status Are patient's symptoms suggestive of a new infection, such as: -Pneumonia -Skin, Soft Tissue -Endocarditis -UTI -Bone, Joint Infection -Implantable Device -Acute Abdominal Infection -Wound Infection -Meningitis -Blood Stream Catheter Infection -Unknown Review of Systems Review Of Systems Constitutional: Reports No symptoms Eyes: Reports No symptoms Ears, Nose, Mouth, Throat: Reports No symptoms Respiratory: Reports Short of air (sensation of at times ) Cardiac: Reports Chest pain; Denies Edema, Irregular heart rate, Lightheadedness, Palpitations or Syncope GI: Reports No symptoms : Reports No symptoms Musculoskeletal: Reports No symptoms Skin: Reports No symptoms Neurological: Reports No symptoms Endocrine: Reports No symptoms Hematologic/Lymphatic: Reports No symptoms All Other Systems: Reviewed and Negative [facility] Social History History of recent travel: No Female Reproductive History Menstrual Hx Hysterectomy: No Hx Tubal Ligation: No Physical Exam Physical Exam Appearance: Reports Well-appearing Ill-appearing: None Pain Distress: None Eyes: Reports JUAN FRANCISCO, EOMI and Conjunctiva clear ENT: Reports Ears normal, Nose normal and Oropharynx normal Neck: Supple Respiratory: Reports Airway patent, Breath sounds clear and Breath sounds equal Cardiovascular: Reports RRR, No rub and No murmur; Denies Irregular rhythm or Tachycardia GI/: Reports Soft Musculoskeletal: Reports Normal strength, ROM intact, No edema and No calf tenderness Skin: Reports Warm, Dry and Normal color Neurological: Reports Sensation intact, Motor intact, Alert and Oriented Psychiatric: Reports Affect appropriate and Mood appropriate Interpretation Radiology Interpretation Radiology Interpretation By: Radiologist Exam Interpreted: Portable CXR Xray Comments: neg EKG Interpretation Time of EKG #1: 16:21 Rate: Normal Rhythm: Sinus Ectopy: None Damon: NL ST Segment: Normal Interpretation: normal Critical Care Note Critical Care Note Total Critical Care Time (mins): 20 Comments: eval , chart review reexam / discussed testing and results / SBAR handoff to in pt physician Course Course Hematology/Chemistry: 02/27/22 16:32 02/27/22 16:32 Orders, Labs, Meds: Lab Review 02/27/22 02/27/22 02/27/22 16:32 16:32 16:32 WBC 7.65 RBC 4.36 Hgb 13.9 Hct 40.5 MCV 92.9 MCH 31.9 H MCHC 34.3 RDW Coeff of Nida 12.8 Plt Count 325 Immature Gran % (Auto) 0.1 Neut % (Auto) 64.1 Lymph % (Auto) 25.1 [place] % (Auto) 8.4 Eos % (Auto) 2.0 Baso % (Auto) 0.3 Neut # (Auto) 4.9 Lymph # (Auto) 1.9 [place] # (Auto) 0.6 Eos # (Auto) 0.2 Baso # (Auto) 0.0 Immature Gran # (Auto) 0.0 Sodium 137.9 Potassium 3.80 Chloride 106.6 Carbon Dioxide 26.2 Anion Gap 8.90 BUN 16.6 Creatinine 1.05 Estimated GFR (MDRD) 56.00 BUN/Creatinine Ratio 15.80 Glucose 117.3 H Calcium 8.38 L Total Bilirubin 0.31 AST 27.5 ALT 19.1 Alkaline Phosphatase 77.4 Total Creatine Kinase 67.2 Troponin I < 0.012 Total Protein 6.95 Albumin 3.74 Globulin 3.21 Albumin/Globulin Ratio 1.16 D-Dimer Urine Color Urine Clarity Urine pH Ur Specific [place] Urine Protein Urine Glucose (UA) Urine Ketones Urine Blood Urine Nitrite Urine Bilirubin Urine Urobilinogen Ur Leukocyte Esterase Urine Microscopic RBC Ur Squamous Epith Cells Urine Bacteria Urine Test Urine Opiates Screen Ur Oxycodone Screen Urine Methadone Screen Ur Propoxyphene Screen Ur Barbiturates Screen U Tricyclic Antidepress Ur Phencyclidine Scrn Ur Amphetamine Screen U Methamphetamines Scrn U Benzodiazepines Scrn Urine Cocaine Screen U Cannabinoids Screen SARS-CoV-2 Ag (Rapid) 02/27/22 02/27/22 02/27/22 16:32 17:15 17:15 WBC RBC Hgb Hct MCV MCH MCHC RDW Coeff of Nida Plt Count Immature Gran % (Auto) Neut % (Auto) Lymph % (Auto) [place] % (Auto) Eos % (Auto) Baso % (Auto) Neut # (Auto) Lymph # (Auto) [place] # (Auto) Eos # (Auto) Baso # (Auto) Immature Gran # (Auto) Sodium Potassium Chloride Carbon Dioxide Anion Gap BUN Creatinine Estimated GFR (MDRD) BUN/Creatinine Ratio Glucose Calcium Total Bilirubin AST ALT Alkaline Phosphatase Total Creatine Kinase Troponin I Total Protein Albumin Globulin Albumin/Globulin Ratio D-Dimer 477.80 Urine Color Yellow Urine Clarity Clear Urine pH 5.5 Ur Specific [place] >=1.030 Urine Protein 1+ H Urine Glucose (UA) Negative Urine Ketones Negative Urine Blood 3+ H Urine Nitrite Negative Urine Bilirubin 1+ H Urine Urobilinogen 0.2 Ur Leukocyte Esterase Negative Urine Microscopic RBC 10-20 Ur Squamous Epith Cells 50-100 Urine Bacteria 2+ Urine Test Urine Opiates Screen Negative Ur Oxycodone Screen Negative Urine Methadone Screen Negative Ur Propoxyphene Screen Negative Ur Barbiturates Screen Negative U Tricyclic Antidepress Negative Ur Phencyclidine Scrn Negative Ur Amphetamine Screen Negative U Methamphetamines Scrn Negative U Benzodiazepines Scrn Negative Urine Cocaine Screen Negative U Cannabinoids Screen Negative SARS-CoV-2 Ag (Rapid) 02/27/22 02/27/22 02/27/22 17:15 19:20 19:30 WBC RBC Hgb Hct MCV MCH MCHC RDW Coeff of Nida Plt Count Immature Gran % (Auto) Neut % (Auto) Lymph % (Auto) [place] % (Auto) Eos % (Auto) Baso % (Auto) Neut # (Auto) Lymph # (Auto) [place] # (Auto) Eos # (Auto) Baso # (Auto) Immature Gran # (Auto) Sodium Potassium Chloride Carbon Dioxide Anion Gap BUN Creatinine Estimated GFR (MDRD) BUN/Creatinine Ratio Glucose Calcium Total Bilirubin AST ALT Alkaline Phosphatase Total Creatine Kinase 65.6 Troponin I < 0.012 Total Protein Albumin Globulin Albumin/Globulin Ratio D-Dimer Urine Color Urine Clarity Urine pH Ur Specific [place] Urine Protein Urine Glucose (UA) Urine Ketones Urine Blood Urine Nitrite Urine Bilirubin Urine Urobilinogen Ur Leukocyte Esterase Urine Microscopic RBC Ur Squamous Epith Cells Urine Bacteria Urine Test Negative Urine Opiates Screen Ur Oxycodone Screen Urine Methadone Screen Ur Propoxyphene Screen Ur Barbiturates Screen U Tricyclic Antidepress Ur Phencyclidine Scrn Ur Amphetamine Screen U Methamphetamines Scrn U Benzodiazepines Scrn Urine Cocaine Screen U Cannabinoids Screen SARS-CoV-2 Ag (Rapid) Negative Orders Category Date Time Status PLACE PATIENT OBSERVATION .TO [facility] (MONITORED BED ADMISSION 02/27/22 19:12 Active ) ECHOCARDIOGRAM 2D-M MODE Routine CARDIO 02/27/22 19:18 Ordered EKG-(ED ONLY) Stat CARDIO 02/27/22 16:38 Completed EKG-(IP & OP ONLY) DAILY CARDIO 02/27/22 19:15 Ordered EKG-(IP & OP ONLY) DAILY CARDIO 02/28/22 19:15 Ordered OXYGEN Routine CARDIO 02/27/22 19:13 Ordered STRESS ECHO Routine CARDIO 02/27/22 19:18 Ordered INTAKE & OUTPUT Q8HR CARE 02/27/22 19:13 Active IP: INSERT SALINE LOCK ONCE CARE 02/27/22 19:13 Active REMINDER: Notify Provider if temp >101.5 PRN CARE 02/27/22 19:26 Active REMINDER:Notify Provider Pulse<60 or>130 PRN CARE 02/27/22 19:26 Active REMINDER:Notify if BP<90/60 or >170/110 PRN CARE 02/27/22 19:26 Active TELEMETRY MONITORING TELE CARE 02/27/22 19:13 Active VITAL SIGNS Q4HR CARE 02/27/22 19:15 Active CBC W/ AUTO DIFF DAILY@0600 LAB 02/28/22 06:00 Ordered CBC W/ AUTO DIFF DAILY@0600 LAB 03/01/22 06:00 Ordered CBC W/ AUTO DIFF Stat LAB 02/27/22 16:32 Completed CK [CREATINE KINASE] Stat LAB 02/27/22 16:32 Completed COMPREHENSIVE METABOLIC PANEL DAILY@0600 LAB 02/28/22 06:00 Ordered COMPREHENSIVE METABOLIC PANEL DAILY@0600 LAB 03/01/22 06:00 Ordered COMPREHENSIVE METABOLIC PANEL Stat LAB 02/27/22 16:32 Completed COVID-19 ANTIGEN TEST Stat LAB 02/27/22 19:20 Completed CREATINE KINASE Q8H LAB 02/27/22 19:30 Completed CREATINE KINASE Q8H LAB 02/28/22 03:15 Ordered D-DIMER Stat LAB 02/27/22 16:32 Completed DRUG SCREEN, URINE, RAPID Stat LAB 02/27/22 17:15 Completed TROPONIN I Q8H LAB 02/27/22 19:30 Completed TROPONIN I Q8H LAB 02/28/22 03:15 Ordered TROPONIN I Stat LAB 02/27/22 16:32 Completed UA [URINALYSIS C & S IF INDICATED] Stat LAB 02/27/22 17:15 Completed URINE Stat LAB 02/27/22 17:15 Completed 0.9 % Sodium Chloride [Saline Flush] MEDS 02/27/22 21:00 Active 1 syr IVF Q8HR Acetaminophen [Tylenol] MEDS 02/27/22 19:12 Active 650 mg PO Q4H PRN Amlodipine Besylate [Norvasc] MEDS 02/28/22 21:00 Active 10 mg PO BEDTIME Amlodipine Besylate [Norvasc] MEDS 02/27/22 17:12 Discontinued 10 mg PO ONCE STA Aspirin [Aspirin Chewable] MEDS 02/27/22 16:42 Discontinued 324 mg PO ONCE STA Aspirin [Aspirin EC] MEDS 02/28/22 08:30 Active 81 mg PO DAILYWM Atropine Sulfate Inj [Atropine Sulfate Pfs] MEDS 02/27/22 19:12 Active 0.5 mg IVP ONCE PRN Enoxaparin Sodium [Lovenox] MEDS 02/27/22 19:23 Discontinued 40 mg SUBCUT ONCE ONE Metoprolol Tartrate [Lopressor] MEDS 02/27/22 19:42 Discontinued 2.5 mg IVP ONCE STA Morphine Sulfate [Morphine 2 mg/ml Syringe] MEDS 02/27/22 17:33 Discontinued 2 mg IVP ONCE STA Nitroglycerin [Nitrostat] MEDS 02/27/22 19:12 Active 0.4 mg SL Q5MIN X 3 DOSES PRN Omeprazole [Prilosec] MEDS 02/27/22 19:30 Active 40 mg PO DAILY vortioxetine [Trintellix] MEDS 02/27/22 21:00 Pending 10 mg PO BEDTIME RESUSCITATION STATUS Routine OTHERS 02/27/22 19:12 Ordered CHEST, 1V AP ONLY Stat RADS 02/27/22 18:48 Completed CTA ANGIO CHEST Stat RADS 02/27/22 19:45 Ordered Medications Generic Name Dose Route Start Last Admin Trade Name Freq PRN Reason Stop Dose Admin Acetaminophen 650 mg 02/27/22 19:12 Acetaminophen 325 Mg Tablet PO Q4H PRN Mild Pain Amlodipine Besylate 10 mg 02/28/22 21:00 Amlodipine Besylate 5 Mg Tablet PO BEDTIME JESSICA Aspirin 81 mg 02/28/22 08:30 Aspirin 81 Mg Tablet. PO DAILYWM JESSICA Atropine Sulfate 0.5 mg 02/27/22 19:12 Atropine Sulfate Inj 1 Mg/10 Ml Disp.Syrin IVP ONCE PRN Symptomatic Bradycardia Sodium Chloride 500 mls @ 50 mls/hr 02/27/22 20:30 Sodium Chloride IV .Q10H JESSICA Nitroglycerin 0.4 mg 02/27/22 19:12 Nitroglycerin 0.4 Mg Tab.Subl SL Q5MIN X 3 DOSES PRN Chest Pain Non-Formulary Medication 10 mg 02/27/22 21:00 Vortioxetine [Trintellix] PO BEDTIME JESSICA Omeprazole 40 mg 02/27/22 19:30 Omeprazole 20 Mg Capsule. PO DAILY JESSICA Sodium Chloride 1 syr 02/27/22 21:00 0.9% Sodium Chloride 10 Ml Disp.Syrin IVF Q8HR JESSICA Discontinued Medications Generic Name Dose Route Start Last Admin Trade Name Freq PRN Reason Stop Dose Admin Amlodipine Besylate 10 mg 02/27/22 17:12 02/27/22 17:30 Amlodipine Besylate 5 Mg Tablet PO 02/27/22 17:13 10 mg ONCE STA Administration Aspirin 324 mg 02/27/22 16:42 02/27/22 16:46 Aspirin 81 Mg Tab.Chew PO 02/27/22 16:43 324 mg ONCE STA Administration Enoxaparin Sodium 40 mg 02/27/22 19:23 Enoxaparin Sodium 40 Mg/0.4 Ml Syr SUBCUT 02/27/22 19:24 ONCE ONE Metoprolol Tartrate 2.5 mg 02/27/22 19:42 02/27/22 19:54 Metoprolol Tartrate 5 Mg/5 Ml Vial IVP 02/27/22 19:43 2.5 mg ONCE STA Administration Morphine Sulfate 2 mg 02/27/22 17:33 02/27/22 17:39 Morphine Sulfate 2 Mg/Ml Syringe IVP 02/27/22 17:34 2 mg ONCE STA Administration Vital Signs: Temp Pulse Resp BP Pulse Ox 02/27/22 16:19 98.4 F 85 16 162/119 H 97 ALEXANDER Risk Score ALEXANDER Risk Score: Risk Score Odds of by 30D 0 0.1 (0.1-0.2) 1 0.3 (0.2-0.3) 2 0.4 (0.3-0.5) 3 0.7 (0.6-0.9) 4 1.2 (1.0-1.5) 5 2.2 (1.9-2.6) 6 3.0 (2.5-3.6) 7 4.8 (3.8-6.1) Discharge Plan Discharge Patient Disposition: PLACED OBSERVATION Discharge Problem: Chest pain Did you review [place] CHEMICAL TECHNICIAN?: No ED Provider: ORION LUBIN Condition: Good Physician Progress Note: []pt with no stemi / non stemi yet with recent hx chest pressure - discussed with cardiology and will place in observation for echo and stress echo tomorrow With pts mother and brother both having non provoked pulmonary emboli and pt does not think she has been tested for clotting disorders and having stress test tomorrow for chest pain will obtain CTA - no VQ available till Monday and polysomnography tech has contrast available / Pt given R/B and understand and agrees
[2022-02-27 16:45] LABS: BASOPHILS % (AUTO) 0.3 % (0.0-3.0); EOSINOPHILS # (AUTO) 0.2 K/ul (0.0-0.7); HEMATOCRIT 40.5 % (37.0-47.0); HEMOGLOBIN 13.9 g/dl (12.0-16.0); IMMATURE GRANULOCYTE % (AUTO) 0.1 % (0.0-5.0); LYMPHOCYTES # (AUTO) 1.9 K/uL (0.60-3.4); LYMPHOCYTES % (AUTO) 25.1 (10.0-50.0); MEAN CORPUSCULAR HEMOGLOBIN 31.9 pg (27.0-31.0); MEAN CORPUSCULAR HGB CONC 34.3 (31.8-35.4); MEAN CORPUSCULAR VOLUME 92.9 fl (81.0-99.0); MONOCYTES # (AUTO) 0.6 K/uL (0.4-2.0); MONOCYTES % (AUTO) 8.4 (0-10); NEUTROPHILS # (AUTO) 4.9 K/ul (2.0-6.9); NEUTROPHILS % (AUTO) 64.1 % (42.2-75.2); PLATELET COUNT 325 10^3/uL (140-440); RDW COEFFICIENT OF VARIATION 12.8 % (11.6-14.8); RED BLOOD COUNT 4.36 10^6/ul (4.20-5.40); WHITE BLOOD COUNT 7.65 K/ul (4.6-10.2)
[2022-02-27 16:55] LABS: CREATINE KINASE 67.2 U/L (30-135)
[2022-02-27 16:56] LABS: ALANINE AMINOTRANSFERASE 19.1 U/L (0-35); ALBUMIN 3.74 g/dL (3.5-5.0); ALKALINE PHOSPHATASE 77.4 U/L (38-126); ASPARTATE AMINO TRANSFERASE 27.5 U/L (14-36); BILIRUBIN,TOTAL 0.31 mg/dL (0.2-1.3); BLOOD UREA NITROGEN 16.6 mg/dL (7-17); CALCIUM 8.38 mg/dL (8.4-10.2); CARBON DIOXIDE 26.2 mmol/L (22-30.0); CHLORIDE 106.6 mmol/L (98-107); CREATININE 1.05 mg/dL (0.60-1.30); GLUCOSE 117.3 mg/dL (74-106); POTASSIUM 3.8 mmol/L (3.5-5.1); SODIUM 137.9 mmol/L (134.5-145); TOTAL PROTEIN 6.95 g/dL (6.3-8.2)
[2022-02-27 17:08] LABS: TROPONIN I < 0.012 ng/ml (0.0000-0.120)
[2022-02-27] MEDS ORDERED: NORVASC PO STA (17:12)
[2022-02-27 17:25] LABS: URINE PREGNANCY TEST NEGATIVE (NEGATIVE)
[2022-02-27 17:26] LABS: BILIRUBIN,URINE 1+ (NEGATIVE); CLARITY,URINE Clear (CLEAR); COLOR,URINE Yellow (YELLOW); GLUCOSE, URINE (UA) Negative (NEGATIVE); KETONES,URINE Negative (NEGATIVE); LEUKOCYTE ESTERASE ,URINE Negative (NEGATIVE); NITRITE,URINE Negative (NEGATIVE); PH,URINE 5.5 (5-9); PROTEIN,URINE 1+ (NEGATIVE); URINE, BLOOD 3+ (NEGATIVE); UROBILINOGEN,URINE 0.2 (0.2)
[2022-02-27 17:29] LABS: SQUAMOUS EPITHELIAL CELL,UR 50-100 (0-5)
[2022-02-27 17:30] LABS: BACTERIA,URINE 2+ (NOT PRESENT)
[2022-02-27] MEDS ORDERED: MORPHINE 2 MG/ML SYRINGE IVP STA (17:33)
[2022-02-27 17:35] LABS: AMPHETAMINE SCREEN,URINE NEGATIVE (NEGATIVE); BARBITURATE SCREEN,URINE NEGATIVE (NEGATIVE); BENZODIAZEPINES SCREEN,URINE NEGATIVE (NEGATIVE); CANNABINOID SCREEN,URINE NEGATIVE (NEGATIVE); COCAIN SCREEN,URINE NEGATIVE (NEGATIVE); METHADONE URINE SCREEN NEGATIVE (NEGATIVE); METHAMPHETAMINES SCREEN,URINE NEGATIVE (NEGATIVE); OPIATE SCREEN,URINE NEGATIVE (NEGATIVE); OXYCODONE URINE SCREEN NEGATIVE (NEGATIVE); PHENCYCLIDINE SCREEN,URINE NEGATIVE (NEGATIVE); PROPOXYPHENE URINE SCREEN NEGATIVE (NEGATIVE); TRICYCLIC ANTIDEPRESSANTS URIN NEGATIVE (NEGATIVE)
[2022-02-27] MEDS ORDERED: NITROSTAT SL PRN (19:12)
[2022-02-27] MEDS ORDERED: ATROPINE SULFATE PFS IVP PRN (19:12)
[2022-02-27] MEDS ORDERED: TYLENOL PO PRN (19:12)
[2022-02-27] MEDS ORDERED: LOVENOX SUBCUT ONE (19:23)
[2022-02-27] MEDS ORDERED: PRILOSEC PO SCH (19:30)
[2022-02-27] MEDS ORDERED: LOPRESSOR IVP STA (19:42)
--- NOTE | 2022-02-27 19:43 | DI ---
EXAM: Single, portable AP view(s) chest. HISTORY: Chest pain. COMPARISON: None. TECHNIQUE: Single, portable AP view(s) of the chest. FINDINGS: Lungs: The lung voulmes are normal.The lungs are clear without consolidation or effusion. There are n o suspicious nodules. There is no pneumothorax. Cardiovascular: The heart size and pulmonary vasculature is normal.. The aorta is unremarkable. Mony/Mediastinum: Normal. Osseous structures. Normal for age. IMPRESSION: No acute pulmonary disease.
[2022-02-27 19:56] LABS: CREATINE KINASE 65.6 U/L (30-135)
[2022-02-27 20:09] LABS: TROPONIN I < 0.012 ng/ml (0.0000-0.120)
[2022-02-27] MEDS ORDERED: SODIUM CHLORIDE 500 ML IV SCH (20:30)
--- NOTE | 2022-02-27 20:41 | CT ---
Exam: CT angiography of the chest History: Family history of pulmonary embolism Technique: 2.[address] of the chest utilizing CT angiography protocol. Multiplanar and maximum intens ity projection reformations were formed. FINDINGS: Technically adequate for evaluation of pulmonary arteries and aorta. There are no pulmona ry artery filling defects. The ascending thoracic aorta measures 3.5 cm. No aortic aneurysm or diss ection. Lung windows show minor basilar atelectasis. There is some nodular ground-glass and consoli dation in the lingula. The upper lungs are clear. No pathologic lymph node enlargement or abundance of the mediastinum. No acute chest wall abnormality. No abnormality of the upper abdomen. Impression: 1. No evidence of pulmonary artery thrombus 2. Small focus of consolidation and ground-glass in the lingula suspect for pneumonia. All CT scans are performed using dose optimization techniques as appropriate to the performed exam an d include at least one of the following: Automated exposure control, adjustment of the mA and/or kV according t o size, and the use of iterative reconstruction technique.
[2022-02-27] MEDS ORDERED: SODIUM CHLORIDE 1,000 ML IV SCH (21:00)
[2022-02-27] MEDS ORDERED: VORTIOXETINE 10 MG PO SCH (21:00)
[2022-02-27 21:02] VITALS: BMI 30.8
--- NOTE | 2022-02-27 21:02 | PCM ---
Chief Complaint Chief Complaint: chest pain and shortness of breath History of Present Illness History of Present Illness: past few days intermittent chest pains nonradiating lasting 2-3 min and sensation of shortness of breath No injury, cough , trips , hormone , smoking . Hx of stress test [id number] with reported nl finding. Review of Systems Constitutional: Reports No symptoms Eyes: Reports No symptoms Ears: Reports No symptoms Nose: Reports No symptoms Throat: Reports No symptoms Mouth: Reports No symptoms Respiratory: Reports Shortness of air (sensation of ) Cardiovascular: Reports Chest pain; Denies Left arm pain, Diaphoresis, Orthopnea, Edema, Palpitations or Syncope Gastrointestinal: Reports No symptoms Genitourinary: Reports No symptoms Last Menstrual Cycle: current Neurological: Reports No symptoms Musculoskeletal: Reports No symptoms Skin: Reports No symptoms Immunology: Reports No symptoms Hematology: Reports No symptoms Endocrine: Reports No symptoms Psychiatric: Reports No symptoms Habits: Denies Tobacco use, Substance use or Alcohol use Allergies Allergies Allergy/AdvReac Type Severity Reaction Status Date / Time Sulfa (Sulfonamide AdvReac Verified 03/04/21 17:42 Antibiotics) PFSH Social History History of recent travel: No Medications Medications: Medications Generic Name Dose Route Start Last Admin Trade Name Freq PRN Reason Stop Dose Admin Acetaminophen 650 mg 02/27/22 19:12 Acetaminophen 325 Mg Tablet PO Q4H PRN Mild Pain Amlodipine Besylate 10 mg 02/28/22 21:00 Amlodipine Besylate 5 Mg Tablet PO BEDTIME JESSICA Aspirin 81 mg 02/28/22 08:30 Aspirin 81 Mg Tablet.Dr PO DAILYWM [facility] Atropine Sulfate 0.5 mg 02/27/22 19:12 Atropine Sulfate Inj 1 Mg/10 Ml Disp.Syrin IVP ONCE PRN Symptomatic Bradycardia Sodium Chloride 1,000 mls @ 50 mls/hr 02/27/22 21:00 02/27/22 20:34 Sodium Chloride IV 50 mls/hr .Q20H JESSIAC Administration Nitroglycerin 0.4 mg 02/27/22 19:12 Nitroglycerin 0.4 Mg Tab.Subl SL Q5MIN X 3 DOSES PRN Chest Pain Non-Formulary Medication 10 mg 02/27/22 21:00 Vortioxetine [Trintellix] PO BEDTIME [facility] Omeprazole 40 mg 02/27/22 19:30 02/27/22 20:31 Omeprazole 20 Mg Capsule.Dr PO 40 mg DAILY JESSICA Administration Sodium Chloride 1 syr 02/27/22 21:00 0.9% Sodium Chloride 10 Ml Disp.Syrin IVF Q8HR JESSICA Body Composition Height: 5 ft 7 in Weight: 197 lb Body Mass Index (BMI): 30.8 Vital Signs Temperature: 98.4 F Pulse Rate: 85 Respiratory Rate: 16 Blood Pressure: 158/90 O2 Sat by Pulse Oximetry: 97 Physical Examination Appearance: Reports Well-appearing Ill-appearing: None Pain Distress: None Eyes: Reports JUAN FRANCISCO, EOMI and Conjunctiva clear ENT: Reports Ears normal, Nose normal and Oropharynx normal Neck: Supple Respiratory: Reports Airway patent and Breath sounds clear Cardiovascular: Reports RRR, Pulses normal and No murmur GI/: Reports Soft and Nontender Musculoskeletal: Reports Normal strength, No edema and No calf tenderness Skin: Reports Warm, Dry and Normal color Neurological: Reports Sensation intact, Motor intact, Reflexes intact, Alert and Oriented Psychiatric: Reports Affect appropriate Lab/Tests/Diagnostic Imaging Lab/Tests/Diagnostic Imaging: Lab Review 02/27/22 02/27/22 02/27/22 16:32 16:32 16:32 WBC 7.65 RBC 4.36 Hgb 13.9 Hct 40.5 MCV 92.9 MCH 31.9 H MCHC 34.3 RDW Coeff of Nida 12.8 Plt Count 325 Immature Gran % (Auto) 0.1 Neut % (Auto) 64.1 Lymph % (Auto) 25.1 Eddy % (Auto) 8.4 Eos % (Auto) 2.0 Baso % (Auto) 0.3 Neut # (Auto) 4.9 Lymph # (Auto) 1.9 Eddy # (Auto) 0.6 Eos # (Auto) 0.2 Baso # (Auto) 0.0 Immature Gran # (Auto) 0.0 Sodium 137.9 Potassium 3.80 Chloride 106.6 Carbon Dioxide 26.2 Anion Gap 8.90 BUN 16.6 Creatinine 1.05 Estimated GFR (MDRD) 56.00 BUN/Creatinine Ratio 15.80 Glucose 117.3 H Calcium 8.38 L Total Bilirubin 0.31 AST 27.5 ALT 19.1 Alkaline Phosphatase 77.4 Total Creatine Kinase 67.2 Troponin I < 0.012 Total Protein 6.95 Albumin 3.74 Globulin 3.21 Albumin/Globulin Ratio 1.16 D-Dimer Urine Color Urine Clarity Urine pH Ur Specific [place] Urine Protein Urine Glucose (UA) Urine Ketones Urine Blood Urine Nitrite Urine Bilirubin Urine Urobilinogen Ur Leukocyte Esterase Urine Microscopic RBC Ur Squamous Epith Cells Urine Bacteria Urine Test Urine Opiates Screen Ur Oxycodone Screen Urine Methadone Screen Ur Propoxyphene Screen Ur Barbiturates Screen U Tricyclic Antidepress Ur Phencyclidine Scrn Ur Amphetamine Screen U Methamphetamines Scrn U Benzodiazepines Scrn Urine Cocaine Screen U Cannabinoids Screen SARS-CoV-2 Ag (Rapid) 02/27/22 02/27/22 02/27/22 16:32 17:15 17:15 WBC RBC Hgb Hct MCV MCH MCHC RDW Coeff of Nida Plt Count Immature Gran % (Auto) Neut % (Auto) Lymph % (Auto) Eddy % (Auto) Eos % (Auto) Baso % (Auto) Neut # (Auto) Lymph # (Auto) Eddy # (Auto) Eos # (Auto) Baso # (Auto) Immature Gran # (Auto) Sodium Potassium Chloride Carbon Dioxide Anion Gap BUN Creatinine Estimated GFR (MDRD) BUN/Creatinine Ratio Glucose Calcium Total Bilirubin AST ALT Alkaline Phosphatase Total Creatine Kinase Troponin I Total Protein Albumin Globulin Albumin/Globulin Ratio D-Dimer 477.80 Urine Color Yellow Urine Clarity Clear Urine pH 5.5 Ur Specific [place] >=1.030 Urine Protein 1+ H Urine Glucose (UA) Negative Urine Ketones Negative Urine Blood 3+ H Urine Nitrite Negative Urine Bilirubin 1+ H Urine Urobilinogen 0.2 Ur Leukocyte Esterase Negative Urine Microscopic RBC 10-20 Ur Squamous Epith Cells 50-100 Urine Bacteria 2+ Urine Test Urine Opiates Screen Negative Ur Oxycodone Screen Negative Urine Methadone Screen Negative Ur Propoxyphene Screen Negative Ur Barbiturates Screen Negative U Tricyclic Antidepress Negative Ur Phencyclidine Scrn Negative Ur Amphetamine Screen Negative U Methamphetamines Scrn Negative U Benzodiazepines Scrn Negative Urine Cocaine Screen Negative U Cannabinoids Screen Negative SARS-CoV-2 Ag (Rapid) 02/27/22 02/27/22 02/27/22 17:15 19:20 19:30 WBC RBC Hgb Hct MCV MCH MCHC RDW Coeff of Nida Plt Count Immature Gran % (Auto) Neut % (Auto) Lymph % (Auto) Eddy % (Auto) Eos % (Auto) Baso % (Auto) Neut # (Auto) Lymph # (Auto) Eddy # (Auto) Eos # (Auto) Baso # (Auto) Immature Gran # (Auto) Sodium Potassium Chloride Carbon Dioxide Anion Gap BUN Creatinine Estimated GFR (MDRD) BUN/Creatinine Ratio Glucose Calcium Total Bilirubin AST ALT Alkaline Phosphatase Total Creatine Kinase 65.6 Troponin I < 0.012 Total Protein Albumin Globulin Albumin/Globulin Ratio D-Dimer Urine Color Urine Clarity Urine pH Ur Specific [place] Urine Protein Urine Glucose (UA) Urine Ketones Urine Blood Urine Nitrite Urine Bilirubin Urine Urobilinogen Ur Leukocyte Esterase Urine Microscopic RBC Ur Squamous Epith Cells Urine Bacteria Urine Test Negative Urine Opiates Screen Ur Oxycodone Screen Urine Methadone Screen Ur Propoxyphene Screen Ur Barbiturates Screen U Tricyclic Antidepress Ur Phencyclidine Scrn Ur Amphetamine Screen U Methamphetamines Scrn U Benzodiazepines Scrn Urine Cocaine Screen U Cannabinoids Screen SARS-CoV-2 Ag (Rapid) Negative Orders Category Date Time Status PLACE PATIENT OBSERVATION .TO [facility] (MONITORED BED ADMISSION 02/27/22 19:12 Active ) ECHOCARDIOGRAM 2D-M MODE Routine CARDIO 02/27/22 19:18 Ordered EKG-(ED ONLY) Stat CARDIO 02/27/22 16:38 Completed EKG-(IP & OP ONLY) DAILY CARDIO 02/27/22 19:15 Ordered EKG-(IP & OP ONLY) DAILY CARDIO 02/28/22 19:15 Ordered OXYGEN Routine CARDIO 02/27/22 19:13 Ordered STRESS ECHO Routine CARDIO 02/27/22 19:18 Ordered INTAKE & OUTPUT Q8HR CARE 02/27/22 19:13 Active IP: INSERT SALINE LOCK ONCE CARE 02/27/22 19:13 Active REMINDER: Notify Provider if temp >101.5 PRN CARE 02/27/22 19:26 Active REMINDER:Notify Provider Pulse<60 or>130 PRN CARE 02/27/22 19:26 Active REMINDER:Notify if BP<90/60 or >170/110 PRN CARE 02/27/22 19:26 Active TELEMETRY MONITORING TELE CARE 02/27/22 19:13 Active VITAL SIGNS Q4HR CARE 02/27/22 19:15 Active CBC W/ AUTO DIFF DAILY@0600 LAB 02/28/22 06:00 Ordered CBC W/ AUTO DIFF DAILY@0600 LAB 03/01/22 06:00 Ordered CBC W/ AUTO DIFF Stat LAB 02/27/22 16:32 Completed CK [CREATINE KINASE] Stat LAB 02/27/22 16:32 Completed COMPREHENSIVE METABOLIC PANEL DAILY@0600 LAB 02/28/22 06:00 Ordered COMPREHENSIVE METABOLIC PANEL DAILY@0600 LAB 03/01/22 06:00 Ordered COMPREHENSIVE METABOLIC PANEL Stat LAB 02/27/22 16:32 Completed COVID-19 ANTIGEN TEST Stat LAB 02/27/22 19:20 Completed CREATINE KINASE Q8H LAB 02/27/22 19:30 Completed CREATINE KINASE Q8H LAB 02/28/22 03:15 Ordered D-DIMER Stat LAB 02/27/22 16:32 Completed DRUG SCREEN, URINE, RAPID Stat LAB 02/27/22 17:15 Completed PROCALCITONIN Stat LAB 02/27/22 20:51 Ordered PROCALCITONIN Stat LAB 02/27/22 20:52 Stop Req TROPONIN I Q8H LAB 02/27/22 19:30 Completed TROPONIN I Q8H LAB 02/28/22 03:15 Ordered TROPONIN I Stat LAB 02/27/22 16:32 Completed UA [URINALYSIS C & S IF INDICATED] Stat LAB 02/27/22 17:15 Completed URINE Stat LAB 02/27/22 17:15 Completed 0.9 % Sodium Chloride [Saline Flush] MEDS 02/27/22 21:00 Active 1 syr IVF Q8HR Acetaminophen [Tylenol] MEDS 02/27/22 19:12 Active 650 mg PO Q4H PRN Amlodipine Besylate [Norvasc] MEDS 02/28/22 21:00 Active 10 mg PO BEDTIME Amlodipine Besylate [Norvasc] MEDS 02/27/22 17:12 Discontinued 10 mg PO ONCE STA Aspirin [Aspirin Chewable] MEDS 02/27/22 16:42 Discontinued 324 mg PO ONCE STA Aspirin [Aspirin EC] MEDS 02/28/22 08:30 Active 81 mg PO DAILYWM Atropine Sulfate Inj [Atropine Sulfate Pfs] MEDS 02/27/22 19:12 Active 0.5 mg IVP ONCE PRN Enoxaparin Sodium [Lovenox] MEDS 02/27/22 19:23 Discontinued 40 mg SUBCUT ONCE ONE Metoprolol Tartrate [Lopressor] MEDS 02/27/22 19:42 Discontinued 2.5 mg IVP ONCE STA Morphine Sulfate [Morphine 2 mg/ml Syringe] MEDS 02/27/22 17:33 Discontinued 2 mg IVP ONCE STA Nitroglycerin [Nitrostat] MEDS 02/27/22 19:12 Active 0.4 mg SL Q5MIN X 3 DOSES PRN Omeprazole [Prilosec] MEDS 02/27/22 19:30 Active 40 mg PO DAILY Sodium Chloride 0.9% [Sodium Chloride] 1,000 ml MEDS 02/27/22 21:00 Active IV 50 mls/hr vortioxetine [Trintellix] MEDS 02/27/22 21:00 Pending 10 mg PO BEDTIME RESUSCITATION STATUS Routine OTHERS 02/27/22 19:12 Ordered CHEST, 1V AP ONLY Stat RADS 02/27/22 18:48 Completed CTA ANGIO CHEST Stat RADS 02/27/22 19:45 Completed Medications Generic Name Dose Route Start Last Admin Trade Name Freq PRN Reason Stop Dose Admin Acetaminophen 650 mg 02/27/22 19:12 Acetaminophen 325 Mg Tablet PO Q4H PRN Mild Pain Amlodipine Besylate 10 mg 02/28/22 21:00 Amlodipine Besylate 5 Mg Tablet PO BEDTIME JESSICA Aspirin 81 mg 02/28/22 08:30 Aspirin 81 Mg Tablet. PO DAILYWM JESSICA Atropine Sulfate 0.5 mg 02/27/22 19:12 Atropine Sulfate Inj 1 Mg/10 Ml Disp.Syrin IVP ONCE PRN Symptomatic Bradycardia Sodium Chloride 1,000 mls @ 50 mls/hr 02/27/22 21:00 02/27/22 20:34 Sodium Chloride IV 50 mls/hr .Q20H JESSICA Administration Nitroglycerin 0.4 mg 02/27/22 19:12 Nitroglycerin 0.4 Mg Tab.Subl SL Q5MIN X 3 DOSES PRN Chest Pain Non-Formulary Medication 10 mg 02/27/22 21:00 Vortioxetine [Trintellix] PO BEDTIME JESSICA Omeprazole 40 mg 02/27/22 19:30 02/27/22 20:31 Omeprazole 20 Mg Capsule. PO 40 mg DAILY JESSICA Administration Sodium Chloride 1 syr 02/27/22 21:00 0.9% Sodium Chloride 10 Ml Disp.Syrin IVF Q8HR JESSICA Discontinued Medications Generic Name Dose Route Start Last Admin Trade Name Freq PRN Reason Stop Dose Admin Amlodipine Besylate 10 mg 02/27/22 17:12 02/27/22 17:30 Amlodipine Besylate 5 Mg Tablet PO 02/27/22 17:13 10 mg ONCE STA Administration Aspirin 324 mg 02/27/22 16:42 02/27/22 16:46 Aspirin 81 Mg Tab.Chew PO 02/27/22 16:43 324 mg ONCE STA Administration Enoxaparin Sodium 40 mg 02/27/22 19:23 02/27/22 20:31 Enoxaparin Sodium 40 Mg/0.4 Ml Syr SUBCUT 02/27/22 19:24 40 mg ONCE ONE Administration Metoprolol Tartrate 2.5 mg 02/27/22 19:42 02/27/22 19:54 Metoprolol Tartrate 5 Mg/5 Ml Vial IVP 02/27/22 19:43 2.5 mg ONCE STA Administration Morphine Sulfate 2 mg 02/27/22 17:33 02/27/22 17:39 Morphine Sulfate 2 Mg/Ml Syringe IVP 02/27/22 17:34 2 mg ONCE STA Administration Assessment (1) Chest pain: Status: Acute Code(s): R07.9 - Chest pain, unspecified SNOMED Code(s): 94955669 Assessment: 1.Chest pain 2uncontrolled hypertension Plan Plan: observation lopressor 2.5 mg given prior to observation CTA negative - discussed CT findings with night hospitalist Dr. Dodson and will follow plan echo and stress echo tomorrow
[2022-02-27 21:40] LABS: CHOLESTEROL 158.3 mg/dL (0-200); HDL CHOLESTEROL 47.4 mg/dL (35-80); TRIGLYCERIDES 73.8 mg/dL (0-150)
[2022-02-28 03:20] LABS: BASOPHILS % (AUTO) 0.3 % (0.0-3.0); EOSINOPHILS # (AUTO) 0.2 K/ul (0.0-0.7); EOSINOPHILS % (AUTO) 2.2 % (0.0-7.0); HEMATOCRIT 39.8 % (37.0-47.0); HEMOGLOBIN 13.6 g/dl (12.0-16.0); IMMATURE GRANULOCYTE % (AUTO) 0.1 % (0.0-5.0); LYMPHOCYTES # (AUTO) 1.8 K/uL (0.60-3.4); MEAN CORPUSCULAR HGB CONC 34.2 (31.8-35.4); MEAN CORPUSCULAR VOLUME 93.6 fl (81.0-99.0); MONOCYTES # (AUTO) 0.6 K/uL (0.4-2.0); MONOCYTES % (AUTO) 8.4 (0-10); NEUTROPHILS # (AUTO) 4.3 K/ul (2.0-6.9); PLATELET COUNT 308 10^3/uL (140-440); RED BLOOD COUNT 4.25 10^6/ul (4.20-5.40); WHITE BLOOD COUNT 6.82 K/ul (4.6-10.2)
[2022-02-28 03:31] LABS: ALANINE AMINOTRANSFERASE 17.1 U/L (0-35); ALBUMIN 3.47 g/dL (3.5-5.0); ALKALINE PHOSPHATASE 74.2 U/L (38-126); ASPARTATE AMINO TRANSFERASE 26.6 U/L (14-36); BILIRUBIN,TOTAL 0.34 mg/dL (0.2-1.3); BLOOD UREA NITROGEN 12.5 mg/dL (7-17); CALCIUM 7.85 mg/dL (8.4-10.2); CARBON DIOXIDE 25.4 mmol/L (22-30.0); CHLORIDE 106.4 mmol/L (98-107); CREATINE KINASE 60.3 U/L (30-135); CREATININE 0.84 mg/dL (0.60-1.30); GLUCOSE 99.9 mg/dL (74-106); POTASSIUM 3.66 mmol/L (3.5-5.1); SODIUM 137.8 mmol/L (134.5-145); TOTAL PROTEIN 6.54 g/dL (6.3-8.2)
[2022-02-28 04:02] LABS: TROPONIN I < 0.012 ng/ml (0.0000-0.120)
[2022-02-28] MEDS ORDERED: PRILOSEC PO SCH (07:00)
[2022-02-28] MEDS ORDERED: ASPIRIN EC PO SCH (08:30)
[2022-02-28 10:06] VITALS: BP 148/94; TEMP 98.1
--- NOTE | 2022-02-28 12:58 | STRESSECHO ---
Date of Test: 02/28/2022 Ordering Physician: DR. SHANNON--HOSPITALIST Occupation:NURSE DISCHARGE Reason for Exam: CHEST PAIN, SOB, HTN Smoking History: NONE Height: 67" Weight: 197 LBS Current Medications: OMEPRAZOLE, NORVASC, TRINTELLIX Resting EKG: SINUS RHYTHM/ NO ACUTE CHANGES Target Heart Rate: 147/174 S-T SEGMENT STAGE MPH/GRADE HEART RATE BPM BLOOD PRESSURE MMHG RHYTHM +/- ELEVATION DEPRESSION SYMPTOMS AT REST 85 BPM 152/98 MMHG SR X NONE 1 1.7/10% 160 BPM 178/84 MMHG SR X NONE 2 2.5/12% 3 3.4/14% 4 4.2/16% 5 5.0/18% Immediately After 170 BPM SR X SHORT OF AIR Minutes Post Exercise 2" 127 BPM 210/88 MMHG SR X NONE Minutes Post Exercise 5" 100 BPM 156/90 MMHG SR X NONE DURATION OF EXERCISE: 3:15 MAXIMUM HEART RATE REACHED: 170 BPM REASON FOR TERMINATION: SHORT OF AIR 98% OXYGEN SATURATION WITH EXERCISE ON ROOM AIR METS 5.2 INTERPRETATION: 1. NO EVIDENCE OF ISCHEMIC ST-T WAVE CHANGES WITH EXERCISE 2. NO CHEST PAIN OR DISCOMFORT 3. BLOOD PRESSURE RESPONSE: HYPERTENSION BASELINE AND WITH EXERCISE 4. NO ARRHYTHMIAS NORMAL LEFT VENTRICLE CONTRACTILITY--RESTING AND POST EXERCISE MTDD
--- NOTE | 2022-02-28 12:59 | PCM.PROG ---
Date Seen by Provider: 02/28/22 Time Seen by Provider: 07:30 Subjective: Patient denies chest pain or dyspnea. Objective: Vitals: T=98.1 F, P=91, R=18, VC=856/94, JRR1=031 Patient appears to be comfortable. She is in NAD. HEENT: [] Neck: []Supple. Lungs: [] Clear. BS equal. CVS: []RRR. No peripheral edema. Abdomen: [] Extremities: [] Neurological: [] Skin: [] Lab/Tests/Diagnostic Imaging: [] (1) Chest pain: Status: Acute Code(s): R07.9 - Chest pain, unspecified SNOMED Code(s): 23774193 Assessment: Patient had a stress echocardiogram today. She was evaluated by Dr Norman and he has okayed her for discharge. Plan: Discharge patient to home. She is to follow up with her PCP within 1-2 weeks.
--- NOTE | 2022-02-28 13:01 | ECHOSTRESS ---
Date of Exam: 02/28/2022 Ordering Physician: DR. Shaw--HOSPITALIST Reason for Echo: CHEST PAIN, SOB, HTN, STRESS TEST--NO ISCHEMIA M-Mode Normal Adult Results LV Dimensions Normal Adult Results AoV Opening excursions >1.6 LVEDD-base- 3.5-5.8 Ao root dimensions 2.0-3.7 LVESD-base- 3.1-4.6 L. Atrium dimensions 1.9-3.8 Post. Wall thickness 0.8-1.1 IV septum (thickness) 0.7-1.2 Post. Wall excursion 0.72-1.3 Septal motion Systolic motion R. Ventricular cavity 1.5-2.0 LVEF 60% Paradoxical septal wall motion 2-D: NORMAL LEFT VENTRICLE CONTRACTILITY--RESTING AND POST EXERCISE M-MODE: MV: AV: TV: PV: CHAMBER SIZE: WALL MOTION: NORMAL LEFT VENTRICLE CONTRACTILITY--RESTING AND POST EXERCISE PERICARDIUM: INTERPRETATION: 1. NORMAL LEFT VENTRICLE CONTRACTILITY--RESTING AND POST EXERCISE MTDD
--- NOTE | 2022-02-28 13:03 | PCM.DC ---
Final Diagnosis: Chest pain Poorly controlled hypertension Physical Exam Appearance: Well-appearing Ill-appearing: None Pain Distress: None Eyes: JUAN FRANCISCO, EOMI and Conjunctiva clear ENT: Nose normal and Oropharynx normal Neck: Supple Respiratory: Airway patent, Breath sounds clear and Breath sounds equal Cardiovascular: RRR, Pulses normal, No rub and No murmur GI/: Soft, Nontender, No masses and Bowel sounds normal Musculoskeletal: Normal strength, ROM intact and No edema Skin: Warm, Dry and Normal color Neurological: Sensation intact, Motor intact, Cranial nerves intact, Alert and Oriented Psychiatric: Affect appropriate and Mood appropriate (1) Chest pain: Status: Acute Code(s): R07.9 - Chest pain, unspecified SNOMED Code(s): 02954463 (2) Poorly-controlled hypertension: Status: Acute Code(s): I10 - Essential (primary) hypertension SNOMED Code(s): 637718797 Reason for Hospitalization: Patient admitted with poorly controlled hypertension and nonspecific chest pain. Prognosis/Condition at Discharge: Condition at discharge was good. Medications at Discharge: Ambulatory Orders Medication Instructions Recorded amlodipine 10 mg tablet (Norvasc) 10 mg PO BEDTIME 11/02/14 vortioxetine 10 mg tablet 10 mg PO BEDTIME 07/03/17 (Trintellix) omeprazole 40 mg capsule,delayed 40 mg PO DAILY 03/04/21 release Lab/Diagnostics: Stress echocardiogram was normal per Dr Norman. EKG and troponin levels were also normal. Education Provided to Patient and Family: Hypertension. Chest pain. Follow-ups: Patient is to follow up with her PCP within one to two weeks. Discharge Disposition: Home Hospital Course: Patient's blood pressure was noted to decrease during hospitalization, though remained borderline elevated. She was evaluated and it was felt that her chest pain was noncardiac in origin. Plan: Record BP 2-3 times daily and follow up with PCP within 1-2 weeks.
--- NOTE | 2022-02-28 13:05 | ECHO2D ---
Date of Exam: 02/28/2022 Ordering Physician: DR. Shaw--HOSPITALIST Room #: [id number] Reason for Echo: CHEST PAIN, SOB, HTN M-Mode Normal Adult Results LV Dimensions Normal Adult Results AoV Opening excursions >1.6 >1.6 LVEDD-base- 3.5-5.8 4.4 Ao root dimensions 2.0-3.7 3.7 LVESD-base- 3.1-4.6 L. Atrium dimensions 1.9-3.8 3.3 Post. Wall thickness 0.8-1.1 1.1 IV septum (thickness) 0.7-1.2 1.2 Post. Wall excursion 0.72-1.3 NORMAL Septal motion NORMAL Systolic motion R. Ventricular cavity 1.5-2.0 NORMAL LVEF 60% 62% Paradoxical septal wall motion NORMAL 2-D : 2-D M Mode Echocardiogram was performed using apical four chamber and left parasternal long and short axis views. Mitral, tricuspid and aortic valves appear to be normal. Contractility of the left ventricle seems to be normal, so is the cavity size. Left atrial cavity size and aortic root appear to be normal. There is no pericardial effusion. There is no thrombus noted in the left ventricle or left atrial cavity. M-MODE: MV: NORMAL AV: NORMAL TV: NORMAL PV: CHAMBER SIZE: NORMAL WALL MOTION: NORMAL PERICARDIUM: NORMAL INTERPRETATION: 1. BORDERLINE LEFT VENTRICLE HYPERTROPHY 2. NORMAL VALVES 3. NORMAL LEFT VENTRICLE SIZE AND NORMAL LEFT VENTRICLE CONTRACTILITY EJECTION FRACTION 62% MTDD
[2022-02-28] MEDS ORDERED: NORVASC PO SCH (21:00)
== END 2022-02-28 13:33 | disposition home or self-care (01) ==
LOC: MEDSURG A 16:18 → ED 16:18 → MEDSURG A 20:45
PROVIDERS: ADMIT Emergency Medicine; ATTEND Surgery
DX: Z51.81 Encounter for therapeutic drug level monitoring; I10 Essential (primary) hypertension; Z79.899 Other long term (current) drug therapy; Z20.822 Contact with and (suspected) exposure to COVID-19; R07.9 Chest pain, unspecified